=== PATIENT | female | born 1930 | race Caucasian/White ===

== ENCOUNTER 2019-06-03 15:04 | Emergency (ER) | payer MEDICARE ==
[~2019-06-03] VITALS: Ht 149.9 cm; Wt 79.0 kg
--- OUTSIDE RECORDS SUMMARY | 2019-06-03 15:06 | XMS REPORT ---
Author Author [facility] Address Unknown Phone Unavailable Care Team Providers Care Dot Compliance Coordinator Name Role Phone EVA ELY Unavailable Unavailable Problems This patient has no known problems. Allergies, Adverse Reactions, Alerts This patient has no known allergies or adverse reactions. Medications This patient has no known medications. Results Test Description Test Time Test Comments Text Results Atomic Results Result Comments TISSUE EXAM 2017-10-07 11:00:00 Surgical Pathology Report Case: [id number] Authorizing Provider: Vin Ely, Collected: 10/02/2017 1330 MD Ordering Location: [facility] Received: 10/02/2017 1500 SERVICES Pathologist: Mercedes Monsivais MD Specimen: Condy le,Right Knee CONDYLES, RIGHT KNEE, ARTHROPLASTY: - DEGENERATIVE CHANGES CONSISTENT WITH OSTEOARTHRITIS - SYNOVIUM WITH REACTIVE CHANGES Signing Pathologist Direct Phone Line: [phone] signed by Mercedes Monsivais MD on 10/07/2017 at 11:00 [id number], [id number] osteoarthritis right knee Right knee condyle Received fresh labeled "condyle, right knee" are multiple irregular, girard-white to yellow-david portions of soft and osseous tissue to include the tibial plateau and femoral condyles measuring 12.5 x 7.5 x 1.5 cm in aggregate. The articular surfaces are girard-white to yellow-david and display focal areas of eburnation with obliteration of the demarcation between cortical and cancellous bone in these areas on cross section.Section code: A1-A2, bone for decalcification; A3, soft tissue for decalcification. DB/ewPerformed. POCT-GLUCOSE METER 2017-10-05 08:16:00 POC-GLUCOSE METER (BEAKER) (test edcb=8739) 127 mg/dL 70-[address] [facility] [address] [facility] [address] POCT-GLUCOSE [id number] 21:33:00* Test Item Value Reference Range Comments POC-GLUCOSE METER (BEAKER) (test uslu=0731) 147 mg/dL 70-[address] [facility] [address] [facility] [address] POCT-GLUCOSE [id number] 16:59:00* Test Item Value Reference Range Comments POC-GLUCOSE METER (BEAKER) (test cdfq=9577) 118 mg/dL 70-110 TESTED AT [place] [id number] [facility] [address] POCT-GLUCOSE [id number] 12:43:00* Test Item Value Reference Range Comments POC-GLUCOSE METER (BEAKER) (test anzi=6204) 185 mg/dL 70-110 TESTED AT [address] [address] POCT-GLUCOSE [id number] 09:41:00* Test Item Value Reference Range Comments POC-GLUCOSE METER (BEAKER) (test xylb=3633) 120 mg/dL 70-110 TESTED AT [place] [id number] [facility] [address] BASIC METABOLIC [id number] 08:29:00* Test Item Value Reference Range Comments SODIUM (BEAKER) (test hinl=609) 144 meq/L 136-145 POTASSIUM (BEAKER) (test qguo=147) 3.9 meq/L 3.5-5.1 CHLORIDE (BEAKER) (test ulpy=760) 111 meq/L 98-107 CO2 (BEAKER) (test adut=646) 26 meq/L 22-29 BLOOD UREA NITROGEN (BEAKER) (test riwz=393) 25 mg/dL 7-21 CREATININE (BEAKER) (test lacc=851) 0.90 mg/dL 0.57-1.25 GLUCOSE RANDOM (BEAKER) (test ryhc=028) 130 mg/dL 70-105 CALCIUM (BEAKER) (test sxpu=317) 8.9 mg/dL 8.4-10.2 EGFR (BEAKER) (test sjlg=7726) 60 mL/min/1.73 sq m ESTIMATED GFR IS NOT ACCURATE CREATININE CLEARANCE IN PREDICTING GLOMERULAR FILTRATION RATE. ESTIMATED GFR IS NOT APPLICABLE FOR DIALYSIS PATIENTS. CBC W/PLT COUNT & AUTO [id number] 08:17:00* Test Item Value Reference Range Comments WHITE BLOOD CELL COUNT (BEAKER) (test livl=167) 13.4 K/ L 3.5-10.5 RED BLOOD CELL COUNT (BEAKER) (test jprt=681) 3.54 M/ L 3.93-5.22 HEMOGLOBIN (BEAKER) (test qhem=221) 11.7 GM/DL 11.2-15.7 HEMATOCRIT (BEAKER) (test tjij=639) 34.9 % 34.1-44.9 MEAN CORPUSCULAR VOLUME (BEAKER) (test rdxo=833) 98.6 fL 79.4-94.8 MEAN CORPUSCULAR HEMOGLOBIN (BEAKER) (test ydas=051) 33.1 pg 25.6-32.2 MEAN CORPUSCULAR HEMOGLOBIN CONC (BEAKER) (test fzwg=531) 33.5 GM/DL 32.2-35.5 RED CELL DISTRIBUTION WIDTH (BEAKER) (test mwqg=269) 13.2 % 11.7-14.4 PLATELET COUNT (BEAKER) (test syie=443) 201 K/CU MM 150-450 MEAN PLATELET VOLUME (BEAKER) (test shjt=367) 9.9 fL 9.4-12.3 NUCLEATED RED BLOOD CELLS (BEAKER) (test fwfl=109) 0 /100 WBC 0-0 NEUTROPHILS RELATIVE PERCENT (BEAKER) (test jhcv=215) 75 % LYMPHOCYTES RELATIVE PERCENT (BEAKER) (test xwza=707) 15 % MONOCYTES RELATIVE PERCENT (BEAKER) (test skcq=275) 10 % EOSINOPHILS RELATIVE PERCENT (BEAKER) (test wqbg=312) 0 % BASOPHILS RELATIVE PERCENT (BEAKER) (test utbk=420) 0 % NEUTROPHILS ABSOLUTE COUNT (BEAKER) (test shkw=581) 10.01 K/ L 1.56-6.13 LYMPHOCYTES ABSOLUTE COUNT (BEAKER) (test swva=822) 2.04 K/ L 1.18-3.74 MONOCYTES ABSOLUTE COUNT (BEAKER) (test ogwh=604) 1.30 K/ L 0.24-0.36 EOSINOPHILS ABSOLUTE COUNT (BEAKER) (test lfkd=572) 0.02 K/ L 0.04-0.36 BASOPHILS ABSOLUTE COUNT (BEAKER) (test kcec=557) 0.01 K/ L 0.01-0.08 IMMATURE GRANULOCYTES-RELATIVE PERCENT (BEAKER) (test iqcw=2100) 0 % 0-1 POCT-GLUCOSE [id number] 21:01:00* Test Item Value Reference Range Comments POC-GLUCOSE METER (BEAKER) (test bdhb=8399) 211 mg/dL 70-110 TESTED AT [address] [address] POCT-GLUCOSE [id number] 18:52:00* Test Item Value Reference Range Comments POC-GLUCOSE METER (BEAKER) (test jmhu=4557) 213 mg/dL 70-110 TESTED AT [address] [address] POCT-GLUCOSE [id number] 07:53:00* Test Item Value Reference Range Comments POC-GLUCOSE METER (BEAKER) (test idir=1514) 190 mg/dL 70-110 TESTED AT [address] [address] BASIC METABOLIC [id number] 05:05:00* Test Item Value Reference Range Comments SODIUM (BEAKER) (test rxxc=557) 136 meq/L 136-145 POTASSIUM (BEAKER) (test zkqn=285) 3.6 meq/L 3.5-5.1 Specimen slightly hemolyzed CHLORIDE (BEAKER) (test soub=989) 101 meq/L 98-107 CO2 (BEAKER) (test ncff=991) 23 meq/L 22-29 BLOOD UREA NITROGEN (BEAKER) (test qofr=691) 17 mg/dL 7-21 CREATININE (BEAKER) (test oozq=520) 0.95 mg/dL 0.57-1.25 Specimen slightly hemolyzed GLUCOSE RANDOM (BEAKER) (test twhi=311) 165 mg/dL 70-105 CALCIUM (BEAKER) (test ptbr=113) 8.6 mg/dL 8.4-10.2 EGFR (BEAKER) (test piwi=8728) 56 mL/min/1.73 sq m ESTIMATED GFR IS NOT ACCURATE CREATININE CLEARANCE IN PREDICTING GLOMERULAR FILTRATION RATE. ESTIMATED GFR IS NOT APPLICABLE FOR DIALYSIS PATIENTS. HEMOGLOBIN AND [id number] 04:48:00* Test Item Value Reference Range Comments HEMOGLOBIN (BEAKER) (test uvww=906) 13.3 GM/DL 11.2-15.7 HEMATOCRIT (BEAKER) (test wjgn=997) 39.8 % 34.1-44.9 POCT-GLUCOSE [id number] 21:15:00* Test Item Value Reference Range Comments POC-GLUCOSE METER (BEAKER) (test loye=3099) 255 mg/dL 70-110 TESTED AT [address] [address] POCT-GLUCOSE [id number] 18:42:00* Test Item Value Reference Range Comments POC-GLUCOSE METER (BEAKER) (test vmio=1444) 218 mg/dL 70-110 TESTED AT [place] [address] POCT-GLUCOSE [id number] 14:55:00* Test Item Value Reference Range Comments POC-GLUCOSE METER (BEAKER) (test vfyx=7814) 109 mg/dL 70-110 TESTED AT [address] [address] POCT-GLUCOSE [id number] 10:43:00* Test Item Value Reference Range Comments POC-GLUCOSE METER (BEAKER) (test oeqg=8898) 120 mg/dL 70-110 TESTED AT [address] [address]
[2019-06-03] MEDS ORDERED: PLAVIX75 MG PO (15:32)
[2019-06-03] MEDS ORDERED: TETANUS/DIPHTHERIA TOX ADULT 0.5 ML SYR IM ONE (16:00)
[2019-06-03] MEDS ORDERED: TETANUS/DIPHTHERIA TOX ADULT 0.5 ML SYR ONE (16:04)
--- NOTE | 2019-06-03 16:51 | Diagnostic Imaging Report ---
EXAMINATION: KNEE 3VW RT - HOPD INDICATION: Fall, knee pain COMPARISON: None FINDINGS: Status post right total knee replacement. No acute fracture or dislocation. Alignment appears anatomic. No substantial joint effusion. Atherosclerotic arterial calcifications. IMPRESSION: No acute osseous injury. Signed by: Pippa Gonzalez MD on 06/03/2019 4:48 PM
--- NOTE | 2019-06-03 16:52 | Diagnostic Imaging Report ---
EXAMINATION: ELBOW 3 VIEW RT - HOPD INDICATION: Fall, elbow pain COMPARISON: None FINDINGS: No acute fracture or dislocation. Alignment appears anatomic. No elbow joint effusion. Soft tissues appear unremarkable. IMPRESSION: No acute osseous injury. Signed by: Pippa Gonzalez MD on 06/03/2019 4:49 PM
--- NOTE | 2019-06-03 17:18 | Diagnostic Imaging Report ---
History:Fall, headaches. Comparison studies:None Technique: Axial images were obtained from the skull base to the vertex. Coronal and sagittal images reconstructed from the axial data. Intravenous contrast: None Dose modulation, iterative reconstruction, and/or weight based adjustment of the mA/kV was utilized to reduce the radiation dose to as low as reasonably achievable. Findings: Scalp/skull: No abnormalities. Extra-axial spaces: No masses. No fluid collections. Brain sulci: Mildly prominent. Ventricles: Mild compensatory dilatation. No hydrocephalus. Parenchyma: Scattered small hypodensities in the supratentorial white matter are small vessel ischemic changes. No masses, hemorrhage, acute or chronic cortical vascular insults. Sellar/suprasellar region: No abnormalities. Craniocervical junction: Patent foramen magnum. No Chiari one malformation. Incidental findings: Atherosclerotic calcifications in the carotid siphons and vertebral arteries . Impression: No acute abnormalities. Chronic findings: 1. Mild generalized volume loss. 2. Mild supratentorial white matter small vessel ischemic changes. Signed by: DR Chris Small M.D. on 06/03/2019 5:14 PM
[2019-06-03 19:35] VITALS: BP 154/90
== END 2019-06-03 19:37 | disposition home or self-care (01) ==
LOC: FSED 15:04
DX: S00.83XA Contusion of other part of head, initial encounter (principal); S50.01XA Contusion of right elbow, initial encounter; S80.01XA Contusion of right knee, initial encounter; S63.501A Unspecified sprain of right wrist, initial encounter; W01.0XXA Fall on same level from slipping, tripping and stumbling without subsequent striking against object, initial encounter; Y92.008 Other place in unspecified non-institutional (private) residence as the place of occurrence of the external cause
CPT/HCPCS: 70450; 90471; 90714; 96372; 99283

== ENCOUNTER 2020-09-16 12:34 | Inpatient (IN) | payer MEDICARE ==
[~2020-09-16] VITALS: Ht 149.9 cm; Wt 79.4 kg
[~2020-09-16 12:34] MED LIST: PLAVIX75 MG PO
[2020-09-16 13:48] LABS: BASOPHILS # (AUTO) 0.1 (0.0-0.1); BASOPHILS % 1.3 % (0.0-1.0); EOSINOPHILS # (AUTO) 0.2 (0.0-0.4); EOSINOPHILS % 2.8 % (0.0-6.0); HEMATOCRIT 40.6 % (34.2-44.1); HEMOGLOBIN 13.1 g/dL (12.0-16.0); LYMPHOCYTES # (AUTO) 2.4 (1.0-3.2); LYMPHOCYTES % 39.8 % (18.0-39.1); MEAN CORPUSCULAR HEMOGLOBIN 31.1 pg (28-32); MEAN CORPUSCULAR HGB CONC 32.3 g/dL (31-35); MEAN CORPUSCULAR VOLUME 96.4 fL (81-99); MONOCYTES # (AUTO) 0.5 (0.2-0.8); MONOCYTES % 7.8 % (4.4-11.3); NEUTROPHILS # (AUTO) 2.9 (2.1-6.9); NEUTROPHILS % 48.1 % (38.7-80.0); PLATELET COUNT 191 x10e3/uL (140-360); RED BLOOD COUNT 4.21 x10e6/uL (3.6-5.1); RED CELL DISTRIBUTION WIDTH 15.4 % (11.7-14.4)
[2020-09-16] MEDS ORDERED: HYDRALAZINE HCL 20 MG/ML VIAL IV STA (13:50)
[2020-09-16 14:04] LABS: INR 2.81
[2020-09-16 14:05] LABS: CLARITY,URINE CLEAR (CLEAR); COLOR,URINE YELLOW (YELLOW); KETONES,URINE NEGATIVE (NEGATIVE); LEUKOCYTE ESTERASE ,URINE NEGATIVE (NEGATIVE); NITRITE,URINE NEGATIVE (NEGATIVE); PROTEIN,URINE DIPSTICK NEGATIVE (NEGATIVE); URINE UROBILINOGEN 0.2 mg/dL (0.2 - 1)
[2020-09-16 14:05] LABS: PARTIAL THROMBOPLASTIN TIME 47.7 seconds (23.8-35.5)
[2020-09-16 14:11] LABS: ALBUMIN 3.6 g/dL (3.5-5.0); ALBUMIN/GLOBULIN RATIO 1.1 (0.8-2.0); CALCIUM 8.7 mg/dL (8.4-10.2); CREATININE, SERUM 0.78 mg/dL (0.57-1.11)
[2020-09-16 14:17] LABS: EPITHELIAL CELLS,URINE FEW /LPF; MUCUS,URINE FEW (RARE); RBC,URINE 0-5 /HPF (0-5); WBC,URINE (MAN) 0-5 /HPF (0-5)
[2020-09-16 14:18] LABS: CREATINE KINASE MB 2.4 ng/mL (0-5.0)
[2020-09-16 16:05] VITALS: BP 165/58
[2020-09-16] MEDS ORDERED: HYDRALAZINE HCL 20 MG/ML VIAL IV PRN (16:15)
[2020-09-16] MEDS ORDERED: ONDANSETRON HCL INJ 2MG/ML 2ML 2 MG/ML VIAL IV PRN (16:15)
[2020-09-16] MEDS ORDERED: ACETAMINOPHEN 325 MG TAB PO PRN (16:15)
[2020-09-16] MEDS ORDERED: WARFARIN SODIUM5 MG PO (17:26)
[2020-09-16] MEDS ORDERED: LYRICA50 MG PO (17:26)
[2020-09-16] MEDS ORDERED: LOSARTAN POTAS100 MG PO (17:26)
[2020-09-16] MEDS ORDERED: VITAMIN D350 MCG PO (17:26)
[2020-09-16] MEDS ORDERED: LYRICA100 MG PO (17:26)
[2020-09-16] MEDS ORDERED: MAGNESIUM OXID400 MG PO (17:26)
[2020-09-16] MEDS ORDERED: VITAMIN C500 MG PO (17:26)
[2020-09-16] MEDS ORDERED: LIPITOR20 MG PO (17:26)
[2020-09-16] MEDS ORDERED: ALLEGRA ALLERGY60 MG PO (17:26)
[2020-09-16] MEDS ORDERED: FLONASE ALLERG9.9 ML INH (17:26)
[2020-09-16] MEDS ORDERED: TYLENOL PO (17:26)
[2020-09-16] MEDS ORDERED: AMIODARONE HCL100 MG PO (17:26)
[2020-09-16] MEDS: HYDRALAZINE HCL 25 MG TAB PO SCH ×2 (19:23→23:15)
[2020-09-16 20:00] VITALS: BP 152/58
[2020-09-16 21:00] VITALS: BP 152/58
[2020-09-17] VITALS (8 sets, daily range): BP systolic 140–183; BP diastolic 37–60
[2020-09-17 06:16] LABS: INR 2.94; PROTHROMBIN TIME 31.1 seconds (11.9-14.5)
[2020-09-17 06:22] LABS: ALBUMIN 2.9 g/dL (3.5-5.0); BILIRUBIN,DIRECT 0.6 mg/dL (0.0-0.5)
[2020-09-17 06:31] LABS: CHOL/HDL RATIO 2.3 (3.0-3.6)
[2020-09-17] MEDS: HYDRALAZINE HCL 25 MG TAB PO SCH ×3 (08:54→21:06)
[2020-09-18] VITALS (8 sets, daily range): BP systolic 93–164; BP diastolic 42–68
[2020-09-18] MEDS: HYDRALAZINE HCL 25 MG TAB PO SCH ×3 (07:42→20:47)
[2020-09-19] VITALS (8 sets, daily range): BP systolic 131–184; BP diastolic 44–77
[2020-09-19 05:56] LABS: INR 1.76; PROTHROMBIN TIME 20.8 seconds (11.9-14.5)
[2020-09-19] MEDS: HYDRALAZINE HCL 25 MG TAB PO SCH ×3 (09:00→21:51)
[2020-09-19] MEDS ORDERED: MIDAZOLAM HCL 2 MG/2 ML VIAL ONE ×2 (10:24→11:20)
[2020-09-19] MEDS ORDERED: LIDOCAINE HCL 2% LOCAL 20 ML VIAL ONE (10:25)
[2020-09-19] MEDS ORDERED: Vancomycin IV 1 GM VIAL ONE (10:25)
[2020-09-19] MEDS ORDERED: GENTAMICIN SULFATE 40 MG/ML 2 ML VIAL ONE (10:25)
[2020-09-19] MEDS ORDERED: CEFAZOLIN SOD 2 GM/NS 50ML 50 ML IV ONE (10:25)
[2020-09-19] MEDS ORDERED: FENTANYL CITRATE/PF 100MCG/2 ML INJ ONE (10:25)
[2020-09-19] MEDS ORDERED: SODIUM CHLORIDE 0.9% 1000ML 1,000 ML ONE ×2 (10:26)
[2020-09-19] MEDS ORDERED: SODIUM CHLORIDE 0.9% 500ML 500 ML ONE (10:26)
[2020-09-19] MEDS ORDERED: SODIUM CHLORIDE 0.9% 250ML 250 ML ONE (10:26)
[2020-09-19] MEDS ORDERED: MORPHINE SULFATE INJ 2 MG/ML SYR IV PRN (12:00)
[2020-09-19] MEDS: ACETAMINOPHEN/CODEINE 300MG - 30MG TAB PO PRN ×2 (13:01→23:55)
[2020-09-19] MEDS ORDERED: ACETAMINOPHEN/CODEINE 300MG - 30MG TAB ONE (13:08)
[2020-09-20] VITALS: BP 129/37
[2020-09-20 04:00] VITALS: BP 103/49
[2020-09-20] MEDS: ACETAMINOPHEN/CODEINE 300MG - 30MG TAB PO PRN (07:15)
[2020-09-20 08:04] VITALS: BP 121/46
[2020-09-20 08:47] VITALS: BP 121/46
[2020-09-20] MEDS: HYDRALAZINE HCL 25 MG TAB PO SCH ×2 (09:06→15:00)
[2020-09-20] MEDS ORDERED: LOPRESSOR25 MG PO (12:08)
[2020-09-20 12:10] VITALS: BP 121/40
[2020-09-20 15:55] VITALS: BP 135/58
[2020-09-20] MEDS ORDERED: MINOCYCLINE HCL50 MG PO (16:09)
[2020-09-20] MEDS ORDERED: ULTRAM50 MG PO (16:10)
[2020-09-20] MEDS ORDERED: METOPROLOL TARTRATE 25 MG TAB PO SCH (17:00)
[2020-09-20] MEDS ORDERED: WARFARIN SOD 5 MG TAB PO SCH (17:00)
[2020-09-20] MEDS ORDERED: ATORVASTATIN 40 MG TAB PO SCH (21:00)
[2020-09-21] MEDS ORDERED: LOSARTAN POTASSIUM 25 MG TAB PO SCH (09:00)
== END 2020-09-20 16:59 | disposition home health service (06) | DRG 244 ==
LOC: ER 12:53 → ERHOLD 13:13 → MED/SURG 16:14
PROVIDERS: ADMIT Internal Medicine; ATTEND Internal Medicine
PROC: 0JH606Z Insertion of Pacemaker, Dual Chamber into Chest Subcutaneous Tissue and Fascia, Open Approach (ICD-10-PCS; principal; 2020-09-19)
PROC: 02H63JZ Insertion of Pacemaker Lead into Right Atrium, Percutaneous Approach (ICD-10-PCS; 2020-09-19)
PROC: 02HK3JZ Insertion of Pacemaker Lead into Right Ventricle, Percutaneous Approach (ICD-10-PCS; 2020-09-19)
PROC: 3E0132A Introduction of Anti-Infective Envelope into Subcutaneous Tissue, Percutaneous Approach (ICD-10-PCS; 2020-09-19)
DX: I48.0 Paroxysmal atrial fibrillation (principal); I49.5 Sick sinus syndrome; I10 Essential (primary) hypertension; I65.21 Occlusion and stenosis of right carotid artery; Z82.49 Family history of ischemic heart disease and other diseases of the circulatory system; Z86.73 Personal history of transient ischemic attack (TIA), and cerebral infarction without residual deficits; Z90.49 Acquired absence of other specified parts of digestive tract; I73.9 Peripheral vascular disease, unspecified; Z79.01 Long term (current) use of anticoagulants; Z20.822 Contact with and (suspected) exposure to COVID-19
CPT/HCPCS: 33208; 36415; 71045; 75820; 80053; 80061; 80076; 81001; 82550; 82553; 83735; 83880; 84443; 84484; 85025; 85610; 85730; 93005; 93306; 93880; 97139; 99152; 99153; 99251; 99284; C1769; C1785; C1898; J0360; J0690; J1580; J2001; J2250; J3010; J3370; J7030; J7040; J7050; U0002

== ENCOUNTER 2020-10-20 09:44 | Emergency (ER) | payer MEDICARE ==
[~2020-10-20] VITALS: Ht 157.5 cm; Wt 74.8 kg
[~2020-10-20 09:44] MED LIST changes: +ALLEGRA ALLERGY60 MG PO; +AMIODARONE HCL100 MG PO; +FLONASE ALLERG9.9 ML INH; +LIPITOR20 MG PO; +LOPRESSOR25 MG PO; +LOSARTAN POTAS100 MG PO; +LYRICA100 MG PO; +LYRICA50 MG PO; +MAGNESIUM OXID400 MG PO; +MINOCYCLINE HCL50 MG PO; +TYLENOL PO; +ULTRAM50 MG PO; +VITAMIN C500 MG PO; +VITAMIN D350 MCG PO; +WARFARIN SODIUM5 MG PO
[2020-10-20] MEDS ORDERED: ONDANSETRON HCL INJ 2MG/ML 2ML 2 MG/ML VIAL IV STA (09:51)
[2020-10-20 10:38] LABS: ANION GAP 14.2 mmol/L (8-16); CALCIUM 8.3 mg/dL (8.4-10.2); CREATININE, SERUM 1.54 mg/dL (0.57-1.11); POTASSIUM 4.2 mmol/L (3.5-5.1)
[2020-10-20] MEDS ORDERED: LACTATED RINGER'S 500 ML IV ONE ×2 (11:00→11:30)
[2020-10-20 11:02] LABS: INR 3.91; PROTHROMBIN TIME 38.9 seconds (11.9-14.5)
[2020-10-20] MEDS ORDERED: LACTATED RINGER'S 1,000 ML ONE (11:25)
[2020-10-20 12:16] LABS: CLARITY,URINE CLOUDY (CLEAR); COLOR,URINE YELLOW (YELLOW); KETONES,URINE TRACE (NEGATIVE); LEUKOCYTE ESTERASE ,URINE NEGATIVE (NEGATIVE); NITRITE,URINE NEGATIVE (NEGATIVE); PROTEIN,URINE DIPSTICK 2+ (NEGATIVE); URINE UROBILINOGEN 1 mg/dL (0.2 - 1)
[2020-10-20 12:20] LABS: BACTERIA,URINE FEW /HPF; EPITHELIAL CELLS,URINE FEW /LPF; RBC,URINE 0-5 /HPF (0-5); WBC,URINE (MAN) 0-5 /HPF (0-5)
[2020-10-20 12:34] LABS: HEMATOCRIT 36.5 % (34.2-44.1); HEMOGLOBIN 11.7 g/dL (12.0-16.0); MEAN CORPUSCULAR HEMOGLOBIN 31.3 pg (28-32); MEAN CORPUSCULAR HGB CONC 32.1 g/dL (31-35); MEAN CORPUSCULAR VOLUME 97.6 fL (81-99); PLATELET COUNT 265 x10e3/uL (140-360); RED BLOOD COUNT 3.74 x10e6/uL (3.6-5.1); RED CELL DISTRIBUTION WIDTH 14.1 % (11.7-14.4)
[2020-10-20 12:35] LABS: LYMPHOCYTES # (AUTO) 2.4 (1.0-3.2); MONOCYTES # (AUTO) 1.5 (0.2-0.8); MONOCYTES % 12.5 % (4.4-11.3); NEUTROPHILS # (AUTO) 8.1 (2.1-6.9); NEUTROPHILS % 67.5 % (38.7-80.0)
[2020-10-20 15:12] VITALS: BP 129/71
== END 2020-10-20 15:14 | disposition home or self-care (01) ==
LOC: ER 09:50
DX: R53.1 Weakness (principal); S80.02XA Contusion of left knee, initial encounter; W01.0XXA Fall on same level from slipping, tripping and stumbling without subsequent striking against object, initial encounter; Y93.01 Activity, walking, marching and hiking; Y92.008 Other place in unspecified non-institutional (private) residence as the place of occurrence of the external cause; R73.9 Hyperglycemia, unspecified; I10 Essential (primary) hypertension; Z20.822 Contact with and (suspected) exposure to COVID-19; Z95.810 Presence of automatic (implantable) cardiac defibrillator
CPT/HCPCS: 36415; 70450; 71045; 72125; 73562; 76705; 80053; 81001; 83690; 83880; 84484; 85025; 85610; 93005; 99284; J2405; J7120; J7121; U0002

== ENCOUNTER 2020-10-20 15:53 | Inpatient (IN) | payer MEDICARE ==
[~2020-10-20] VITALS: Ht 157.5 cm; Wt 74.8 kg
[2020-10-20] MEDS ORDERED: LACTATED RINGER'S 1,000 ML INJ ONE ×2 (16:15→17:15)
[2020-10-20] MEDS ORDERED: SODIUM CHLORIDE 0.9% 1000ML 1,000 ML IV SCH (17:15)
[2020-10-20] MEDS ORDERED: CEFTRIAXONE 1 GM in SODIUM CHLORIDE 0.9% 50ML 50 ML IV ONE (17:15)
[2020-10-20] MEDS ORDERED: ONDANSETRON HCL INJ 2MG/ML 2ML 2 MG/ML VIAL IV STA (17:30)
[2020-10-20] MEDS ORDERED: ONDANSETRON HCL INJ 2MG/ML 2ML 2 MG/ML VIAL ONE (17:38)
[2020-10-20] MEDS ORDERED: ASPIRIN 81 MG CHEW TAB PO ONE (17:45)
[2020-10-20 18:10] LABS: CREATINE KINASE 127 IU/L (29-168)
[2020-10-20 18:20] LABS: INR 5.31; PROTHROMBIN TIME 49.4 seconds (11.9-14.5)
[2020-10-20 19:14] LABS: ALBUMIN 2.8 g/dL (3.5-5.0); ANION GAP 18.5 mmol/L (8-16); CALCIUM 8.5 mg/dL (8.4-10.2); CREATININE, SERUM 1.79 mg/dL (0.57-1.11)
[2020-10-20 19:16] LABS: POTASSIUM 5.5 mmol/L (3.5-5.1)
[2020-10-20 19:24] LABS: BASOPHILS % 0.3 % (0.0-1.0); HEMATOCRIT 35.8 % (34.2-44.1); HEMOGLOBIN 11.1 g/dL (12.0-16.0); LYMPHOCYTES # (AUTO) 2.8 (1.0-3.2); LYMPHOCYTES % 17.9 % (18.0-39.1); MEAN CORPUSCULAR HEMOGLOBIN 31.2 pg (28-32); MEAN CORPUSCULAR VOLUME 100.6 fL (81-99); MONOCYTES # (AUTO) 2.2 (0.2-0.8); NEUTROPHILS # (AUTO) 10.5 (2.1-6.9); NEUTROPHILS % 67.1 % (38.7-80.0); PLATELET COUNT 238 x10e3/uL (140-360); RED BLOOD COUNT 3.56 x10e6/uL (3.6-5.1); RED CELL DISTRIBUTION WIDTH 16.7 % (11.7-14.4)
[2020-10-20] MEDS ORDERED: NOREPINEPHRINE 8 MG/D5W 250 ML 250 ML ONE (19:38)
[2020-10-20] MEDS ORDERED: NOREPINEPHRINE 8 MG/D5W 250 ML 250 ML IV SCH (20:00)
[2020-10-20 20:38] LABS: ANION GAP 18.3 mmol/L (8-16); CALCIUM 8.4 mg/dL (8.4-10.2); CREATININE, SERUM 1.71 mg/dL (0.57-1.11); POTASSIUM 5.3 mmol/L (3.5-5.1)
== END 2020-10-20 21:08 | disposition expired | DRG 871 ==
LOC: ER 16:05 → ERHOLD 17:15
PROVIDERS: ADMIT Internal Medicine; ATTEND Internal Medicine
DX: A41.9 Sepsis, unspecified organism (principal); I21.3 ST elevation (STEMI) myocardial infarction of unspecified site; I25.110 Atherosclerotic heart disease of native coronary artery with unstable angina pectoris; E87.2 Acidosis; R57.9 Shock, unspecified; I49.5 Sick sinus syndrome; Z95.0 Presence of cardiac pacemaker; Z86.73 Personal history of transient ischemic attack (TIA), and cerebral infarction without residual deficits; Z20.822 Contact with and (suspected) exposure to COVID-19; E78.00 Pure hypercholesterolemia, unspecified; I65.23 Occlusion and stenosis of bilateral carotid arteries; I46.2 Cardiac arrest due to underlying cardiac condition
CPT/HCPCS: 36415; 51700; 70450; 71045; 80048; 80053; 82550; 82553; 83605; 84484; 85025; 85610; 87040; 87086; 93005; J0696; J2405; J7030; J7121